=== PATIENT | female | born 1995 | race Caucasian/White ===

== ENCOUNTER 2016-11-30 05:26 | Inpatient (IN) | payer MEDICAID ==
[2016-11-30] MEDS ORDERED: OXYTOCIN 1,000 ML IV ONE ×2 (06:48→09:44)
[2016-11-30] MEDS ORDERED: LR 1,000 ML IV ONE (06:48)
[2016-11-30] MEDS ORDERED: LIDOCAINE 1% 30 ML VIAL (PRESERVATIVE FREE) ONE (06:48)
[2016-11-30 07:22] LABS: AUTOMATED BASOPHIL 0.5 % (0-2); AUTOMATED EOSINOPHIL 0.6 % (0-5); AUTOMATED LYMPH 12.2 % (17-44); AUTOMATED MONOCYTE 6.4 % (3-10); AUTOMATED NEUTROPHIL 80.3 % (45-76); MPV 10.2 fL (7.4-10.4)
[2016-11-30 07:44] VITALS: BMI 26.6
--- NOTE | 2016-11-30 07:45 | HISTPHYS ---
- HISTORY OF PRESENT ILLNESS Age: 21 Estimated Due Date: 12/12/16 Gestational Age: 37 : 2 Para: 1 Patient Presents to:: Labor & Delivery Presents for:: Contractions, Leaking Fluid Current : No Complications, GBS - - REVIEW OF SYSTEMS Reports/Denies: Reports: Contractions, Leaking Fluid Pain: Reports: Abdominal - ALLERGIES Allergies Allergy/AdvReac Type Severity Reaction Status Date / Time No Known Allergies Allergy Verified 11/27/16 11:12 - PAST MEDICAL HISTORY Reports: No Significant History - PAST SURGICAL HISTORY Reports: None - FAMILY HISTORY Family History: Noncontributory - SOCIAL HISTORY Smoking Status: Former smoker Social History: Denies: Amphetamine Use, Alcohol Use, Barbiturate Use, Benzodiazipine Use, Cocaine Use, Heroin Use, Marijuana Use, Methadone Use, MDMA (Ecstasy) Use, Substance Use Disorder Marital Status: - GENITOURINARY HISTORY HX : 2 Para: 1 Live Deliveries (# of pregnancies resulting in a live ): 1 - PHYSICAL EXAM Vital Signs:: Temperature: 97.4 F (11/30/16 05:42) HR: 88 (11/30/16 05:42) RR: 18 (11/30/16 05:42) BP: 122/84 (11/30/16 05:42) Pulse Ox: () GENERAL: Alert, Oriented, No Acute Distress HEENT: Normal CARDOVASCULAR/CHEST: Normal ABDOMEN: Gravid, Non-Tender Fundal Height (cm): 38 GENITOURINARY: Normal. negative: Lesions MUSCULOSKELETAL: Normal EXTERMITIES: Moves All Extremeties. negative: Edema Dilation (cm): 4.5 Effacement (%): 90 Station: -2 Heart Rate: 145 Moderate Variability Contractions: Regular Membranes: SROM Amniotic Fluid: Clear - ASSESSMENT (ACTIVE PROBLEMS) (1) Term Acute Z34.80 - ENCOUNTER FOR SUPRVSN OF NORMAL , UNSP TRIMESTER (2) Active labor Acute [id number] - - PLAN Admit Other Plan: 21 yo at 38 weeks presents to l and d with srom in active labor. Routine care, no complications. Admit, expect vaginal delivery.
[2016-11-30] MEDS ORDERED: LR 1,000 ML IV SCH (08:00)
[2016-11-30] MEDS ORDERED: BUTORPHANOL 1 MG/ML VIAL ONE (08:59)
[2016-11-30] MEDS ORDERED: Vaccine Screening Complete SCH ×2 (09:00→11:00)
[2016-11-30] MEDS ORDERED: BUTORPHANOL 1 MG/ML VIAL IV PRN ×2 (09:11→09:44)
[2016-11-30] MEDS ORDERED: SODIUM CHLORIDE 0.9% 3 ML FLUSH FLUSH PRN (09:44)
[2016-11-30] MEDS ORDERED: LANOLIN OINTMENT 0.25 OZ TUBE TOP PRN (09:44)
[2016-11-30] MEDS ORDERED: OXYCODONE HCL 5 MG TABLET PO PRN ×2 (09:44)
[2016-11-30] MEDS ORDERED: LANOLIN OINTMENT 0.25 OZ TUBE TOP ONE (09:58)
[2016-11-30] MEDS ORDERED: Pharmacy Order Set Alert SCH (10:00)
--- NOTE | 2016-11-30 10:14 | OBDELNOTE ---
Delivery Note - Problem/Diagnosis (1) Term Status: Acute (2) Active labor Status: Acute (3) Single live Status: Acute (4) Vaginal delivery Status: Acute - Admitting Diagnosis Reason for Visit: Contractions Admission Date: 11/30/16 Admission time: 05:40 Gestational Age: 38 - Procedures Procedure(s): Non-Stress Test Labor Anesthesia/Analgesia: IV Medication Date: 11/30/16 Spontaneous Vaginal Delivery Presentation: Vertex Episiotomy: None Laceration: None EBL: 150 Fluid: Clear Placenta: Spontaneous Description: Normal Cord: 3 Vessels - Procedures Procedures: Tubal Ligation - Data Infant Sex: Male Weight: 3.203 kg (1min): 8 (5min): 9 Feeding Plans for Infant: Breast Plans Circumcision: Yes [place] Complications: No Complications [place] to:: LDRP/Mother's Room - /Operative Complications /Op Complications: None Discharge Planning - REASON FOR ADMISSION Patient Presents to:: Labor & Delivery Reason for Visit: Contractions, Leaking Fluid - DISCHARGE INSTRUCTIONS
--- NOTE | 2016-11-30 10:15 | PCM.DCS92 ---
- Primary/Secondary Discharge Diagnoses (1) Term Acute Z34.80 - ENCOUNTER FOR SUPRVSN OF NORMAL , UNSP TRIMESTER (2) Active labor Acute [id number] - (3) Single live Acute Z37.0 - SINGLE LIVE (4) Vaginal delivery Acute O80 - ENCOUNTER FOR FULL-TERM UNCOMPLICATED DELIVERY - HOSPITAL COURSE /Op Complications: None - DISCHARGE INSTRUCTIONS Discharge Disposition: Home Discharge Condition: Good Cognitive Discharge Status: Unimpaired Fuctional Discharge Status: Independent Patient Leaving with Prescriptions?: Yes Prescriptions: Hydrocodone Bit/Acetaminophen [Hydrocodon-Acetaminophen 5-325] 1 - 2 tab PO Q4H PRN #30 tab PRN Reason: Pain Ibuprofen Tablet [Motrin] 800 mg PO TID #30 tab - Diet Diet at Discharge: Regular - Activity Activity: No Heavy Lifting, Pelvic Rest, No Driving No Driving for: 2 weeks - Instructions Call Physician for: Sudden/Sever Chest Pain, Foul Smelling Discharge, Pain/ Redness in Calf/Leg, Temperature Above 100.4, Drainiage from Wound - DC Summary Notes Discharge Medications: *See "Discharge Medication List" for a complete list of Home Medications and Discharge Medications.* Obstetric Hospital Course - Admitting Diagnosis Reason for Visit: Contractions Admission Date: 11/30/16 Admission time: 05:40 Gestational Age: 38 - Procedures Procedure(s): Non-Stress Test Labor Anesthesia/Analgesia: IV Medication Date: 11/30/16 Spontaneous Vaginal Delivery Presentation: Vertex Episiotomy: None Laceration: None EBL: 150 Fluid: Clear Placenta: Spontaneous Description: Normal Cord: 3 Vessels - Procedures Procedures: Tubal Ligation - Data Sex: Male Weight: 3.203 kg (1min): 8 (5min): 9 Feeding Plans for : Breast Plans Circumcision: Yes [place] Complications: No Complications [place] to:: LDRP/Mother's Room - /Operative Complications /Op Complications: None
[2016-11-30] MEDS: IBUPROFEN 800 MG TAB PO SCH ×3 (10:23→22:19)
[2016-11-30] MEDS ORDERED: MIDAZOLAM 2 MG/2 ML VIAL IV ONE (19:18)
[2016-11-30] MEDS ORDERED: FENTANYL 250 MCG/5 ML VIAL IV ONE (19:18)
[2016-11-30] MEDS ORDERED: ONDANSETRON HCL 4 MG/2 ML VIAL IV ONE (19:18)
[2016-11-30] MEDS ORDERED: DEXAMETHASONE 4 MG/ML VIAL IV ONE (19:18)
[2016-11-30] MEDS ORDERED: NEOSTIGMINE 1 MG/1 ML (1:1000) INJ 10 ML MDV IM ONE (19:18)
[2016-11-30] MEDS ORDERED: PROPOFOL 200 MG/20 ML VIAL IV ONE (19:18)
[2016-11-30] MEDS ORDERED: GLYCOPYRROLATE 1 MG VIAL IM ONE (19:18)
[2016-11-30] MEDS ORDERED: ROCURONIUM 50 MG/5 ML VIAL IV ONE (19:18)
[2016-11-30] MEDS: SODIUM CHLORIDE 0.9% 3 ML FLUSH FLUSH SCH (20:02)
[2016-11-30] MEDS: LR 1,000 ML IV SCH (20:02)
[2016-11-30] MEDS ORDERED: Docusate Sodium 100 MG CAP PO SCH (21:00)
[2016-12-01] MEDS: IBUPROFEN 800 MG TAB PO SCH (05:00)
--- NOTE | 2016-12-01 09:19 | OBGYNPROG ---
- Subjective Post Day: 1 Reports: Ambulating, Voiding Freely, Light Bleeding. Denies: Complaints, Heavy Bleeding, Nausea, Vomitting Pain: Reports: Well Managed - Objective Vital Signs: Temperature: 97.8 F (12/01/16 06:08) HR: 90 (12/01/16 06:08) RR: 18 (12/01/16 06:08) BP: 118/71 (12/01/16 06:08) Pulse Ox: () General: Alert, Oriented, No Acute Distress ABDOMEN: Non-Distended, Non-Tender, Soft Fundus: At Umbilicus, Firm. Denies: Tender Lochia: Moderate EXTERMITIES: Moves All Extremeties. Denies: Pain/Tenderness OBGYN Progress Note - ASSESSMENT (1) Encounter for sterilization Status: Acute Code(s): Z30.2 - ENCOUNTER FOR STERILIZATION Comment: Doing well (2) Vaginal delivery Status: Acute Code(s): O80 - ENCOUNTER FOR FULL-TERM UNCOMPLICATED DELIVERY Comment: Pt has requested permanent sterilization. Told of her control options. We has discussed the operative risks including hemorrhage, infection, damage to adjacent organs as well as complications due to anesthesia. Also told of an approximate 1:100 failure rate with increased risk of ectopic should occur. - PLAN Keep NPO
[2016-12-01] MEDS: LR 1,000 ML IV SCH (13:02)
[2016-12-01] MEDS: SODIUM CHLORIDE 0.9% 3 ML FLUSH FLUSH SCH (13:02)
[2016-12-01] MEDS ORDERED: BUPIVACAINE 0.25% 30 ML VIAL ONE (13:15)
[2016-12-01] MEDS ORDERED: CEFAZOLIN 1 GM VIAL ONE (14:39)
--- NOTE | 2016-12-01 15:08 | HIMOPRPT ---
ANESTHESIA: IV Medication DATE OF PROCEDURE: 12/01/16 PREOPERATIVE DIAGNOSIS: Status post vaginal delivery, desires permanent sterilization. POSTOPERATIVE DIAGNOSIS: Status post vaginal delivery, desires permanent sterilization. PROCEDURE: Modified [place] bilateral tubal ligation. SURGEON: Montrell Wynn MD. ANESTHESIA: Spinal COMPLICATIONS: None. ESTIMATED BLOOD LOSS: Minimal. FINDINGS: Normal tubes and uterus. PROCEDURE IN DETAIL: The patient was taken to the operating room, and after successful placement of a spinal anesthetic the patient was prepped and draped as a sterile field and the bladder was drained. A 1.5 cm incision was made transversely at the inferior edge of the umbilicus. The incision was carried down to the fascia bluntly. The fascia was incised with Guo scissors. The peritoneum was isolated and entered. The patient was placed in Trendelenburg, and using Army-Tull retractors the right fallopian tube was located and traced to its fimbriated end. The ampulla region was secured with a Abraham clamp. A 1 cm segment in this region was doubly ligated with 0 plain suture and resected with Metzenbaum scissors. The same procedure was performed on the left fallopian tube. Both pedicles were examined and noted to be hemostatic. The rectus fascia was closed with a running 0 Vicryl suture. The skin incision was closed with a subcuticular 4-0 Vicryl suture. Once sponge and instrument counts were correct, the patient was taken to the recovery room in stable condition. All specimens were sent to pathology.
[2016-12-01] MEDS ORDERED: HYDROmorphone 1 MG INJECTION ONE (15:24)
[2016-12-01 16:00] VITALS: TEMP 97.8
[2016-12-01] MEDS ORDERED: LANOLIN OINTMENT 0.25 OZ TUBE TOP PRN (16:02)
[2016-12-01] MEDS ORDERED: SODIUM CHLORIDE 0.9% 3 ML FLUSH FLUSH PRN (16:02)
[2016-12-01 16:56] VITALS: BP 110/65; PULSE 74
[2016-12-01] MEDS ORDERED: SODIUM CHLORIDE 0.9% 3 ML FLUSH FLUSH SCH (18:00)
[2016-12-01] MEDS ORDERED: PNEUMOCOCCAL 0.5 ML VIAL IM ONE (19:00)
--- NOTE | 2016-12-03 01:16 | HIM.ANES ---
Anesthesia Evaluation & Plan Diagnoses: voluntary sterilization Consented Procedure: post tubal ligation - Focused Review of Systems Cardiac History: No: Hx Hypertension, Hx Cardiac Disorders EKG Rhythm: Sinus Rhythm HEENT: No: Loose/Decaying Teeth, Other HEENT Problems Respiratory: No: Hx Asthma Gastrointestinal: No: Hx Liver disease, Hx Gastrointestinal Disorders Genitourinary: No: Hx Renal Disease, Hx Renal Failure, Hx Dialysis Neurological/Musculoskeletal: No: Hx Neurological Disorders Psychological: No Hx Mental/Emotional Disorders Blood/Autoimmune: No: Hx Blood Transfusions, Hx Anemia, Hx AIDS, Hx Sickle Cell Disease Smoking Status: Former smoker Past Social History: Denies: Amphetamine Use, Alcohol Use, Barbiturate Use, Benzodiazipine Use, Cocaine Use, Heroin Use, Marijuana Use, Methadone Use, MDMA (Ecstasy) Use, Substance Use Disorder Surgical History: No: Bladder Tact, Ureter Stent, Nephrectomy Other Surgical History: ganglion cyst r arm 6-7yrs ago - Focused Physical Exam NPO since: 0000 Mallampati: Class I Thyromental Distance: Greater than 3 Neck: Full Range of Motion Dental: Normal - no significant findings Cardiovascular/Chest: Normal (RRR no mumurs or rubs.) Respiratory: Lungs clear. negative: Rhonchi, Wheezing Any problems with anesthesia, including nausea and vomiting?: No Any relatives with a history of Malignant Hyperthermia?: No Does patient have a history of Malignant Hyperthermia?: No Beta Sury given (if appropriate): N/A Does the patient have a history of Motion Sickness-: No Other: Problem List Problem Status Onset 37 weeks gestation of Acute Active labor Acute Encounter for sterilization Acute False labor after 37 completed weeks of gestation Acute Labial abscess Acute Nausea and vomiting Acute Single live Acute Term Acute Threatened premature labor, antepartum Acute UTI (urinary tract infection) Acute Vaginal delivery Acute CBC/BMP/Other 12/01/16 05:35 Allergies Allergy/AdvReac Type Severity Reaction Status Date / Time No Known Allergies Allergy Verified 11/27/16 11:12 Home Medications Medication Instructions Recorded Last Taken Type Vit/Iron Fumarate/FA 1 tab PO DAILY 04/17/16 11/29/16 20:30 History [ Tablet] Hydrocodone Bit/Acetaminophen 1 - 2 tab PO Q4H PRN #30 tab 11/30/16 Unknown Rx [Hydrocodon-Acetaminophen 5-325] Ibuprofen Tablet [Motrin] 800 mg PO TID #30 tab 11/30/16 11/30/16 22:19 Rx Height and Weight Patient's height 5 ft 2 in Patient's weight 90.718 kg BMI 26.6 Vital Signs Temperature 97.8 F 12/01/16 15:51 Pulse Rate 74 12/01/16 16:51 Respiratory Rate 18 12/01/16 16:51 Blood Pressure 110/65 12/01/16 16:51 Pulse Oxygen Saturation 100 12/01/16 15:40 METS - Level of Activity: Climbing stairs(1 flight),walking level ground, running short distance - Anesthetic Plan Anesthesia Type: General ASA Class: 2 -: I have examined this patient and reviewed the medical record. The patient has been assessed prior to anesthesia. Risks and benefits of anesthesia and anesthetic technique options have been discussed and all questions answered. The patient accepts the risk and desires me to proceed with the planned anesthetic.
--- NOTE | 2016-12-03 01:16 | SC.ANESPOS ---
Post-Anesthesia Note LOC: Fully Awake Post-Anesthesia Assessment: Awake, Returned to Baseline, Hemodynamically Stable , Pain Control Adequate Phase I & II Recovery Complete: Yes Apparent Anesthesia Complication: No : N PACU Discharge Time: 15:50 - Vital Signs Blood Pressure: 110/65 Pulse: 74 Resp Rate: 18 O2 Sat: 100 Temp: 97.8 F - Comments Anesthesia Discharge Time Report Time 15:50
== END 2016-12-01 19:19 | disposition home or self-care (01) | DRG 767 ==
LOC: LD 05:26 → MASU 06:36
PROVIDERS: ADMIT Obstetrics & Gynecology; ATTEND Obstetrics & Gynecology
PROC: 10E0XZZ Delivery of Products of Conception, External Approach (ICD-10-PCS; principal; 2016-11-30)
PROC: 0UB70ZZ Excision of Bilateral Fallopian Tubes, Open Approach (ICD-10-PCS; 2016-12-01)
DX: O80 Encounter for full-term uncomplicated delivery (principal); Z30.2 Encounter for sterilization; Z3A.38 38 weeks gestation of pregnancy; Z37.0 Single live birth
CPT/HCPCS: 59400; 81002; 83986; 84112; 85014; 85018; 85025; 86592; 86900; 86901; 90471; 90732; 96361; 96365; 96366; 96375; J0595; J0690; J1100; J1170; J2001; J2250; J2405; J2590; J2710; J3010; J3490; S0020